=== PATIENT | male | born 1960 | race Hispanic/Latino ===

== ENCOUNTER 2021-07-13 14:40 | Emergency (ER) | payer MEDICARE ==
--- NOTE | 2021-07-13 14:59 | Emergency Department Report ---
ED CPR HPI - General Stated Complaint: CARDIAC ARREST Time Seen by Provider: 07/13/21 14:54 Source: EMS - History of Present Illness Initial Comments: 60-year-old male, history of CVA, CAD with stents, presents to ED in cardiac ar rest. Per EMS, family arrived home approximately 1 hour ago and found patient unresponsive. Patient was last seen normal 1 hour prior to that. EMS arrived and found patient in asystole. Servando tube was placed. Accu-Chek in the 200s. EMS is unable to obtain IV access or IO access. Patient has been receiving chest compressions and O2 via Servando tube for the last 35 minutes. Patient presents to ED and continued arrest. MD Complaint: found unresponsive -: hour(s) (1) Place: home Shock Advised: No Initial Findings in the Field: unresponsive, no respirations, no pulse, other rhythm (Asystole) ROSC in the Field: No Treatments Prior to Arrival: other airway device (Servando tube), chest compressions - Related Data Previous Rx's Medication Instructions Recorded Last Taken Type Aspirin 325 mg PO QDAY #30 tablet 08/14/19 Unknown Rx AtorvaSTATin [Lipitor] 40 mg PO QHS #30 tablet 08/14/19 Unknown Rx Clopidogrel [Plavix] 75 mg PO QDAY #30 tablet 08/14/19 Unknown Rx Metoprolol [Lopressor TAB] 50 mg PO BID #60 tablet 08/14/19 Unknown Rx Nitroglycerin [Nitrostat] 0.4 mg SL .Q5MIN PRN #30 tablet 08/14/19 Unknown Rx amLODIPine 5 mg PO QDAY #30 tablet 08/14/19 Unknown Rx lisinopriL [Zestril TAB] 5 mg PO QDAY #30 tablet 08/14/19 Unknown Rx Allergies Allergy/AdvReac Type Severity Reaction Status Date / Time Sulfa (Sulfonamide Allergy Unknown Verified 10/29/13 23:53 Antibiotics) coconut Allergy Severe Swelling Uncoded 08/13/19 10:58 ED Review of Systems ROS: Stated complaint: CARDIAC ARREST Other details as noted in HPI Comment: Unobtainable due to pts medical conditions ED Past Medical Hx - Past Medical History Hx Hypertension: Yes Hx CVA: Yes (Left side wkness) Hx Heart Attack/AMI: No ( states No CT) Hx Congestive Heart Failure: No Hx Diabetes: No Hx Asthma: No Hx COPD: No 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 - Surgical History Hx Cholecystectomy: Yes - Social History Smoking Status: Never Smoker - Medications Home Medications: Home Medications Medication Instructions Recorded Confirmed Last Taken Type Aspirin 325 mg PO QDAY #30 tablet 08/14/19 Unknown Rx AtorvaSTATin [Lipitor] 40 mg PO QHS #30 tablet 08/14/19 Unknown Rx Clopidogrel [Plavix] 75 mg PO QDAY #30 tablet 08/14/19 Unknown Rx Metoprolol [Lopressor TAB] 50 mg PO BID #60 tablet 08/14/19 Unknown Rx Nitroglycerin [Nitrostat] 0.4 mg SL .Q5MIN PRN #30 tablet 08/14/19 Unknown Rx amLODIPine 5 mg PO QDAY #30 tablet 08/14/19 Unknown Rx lisinopriL [Zestril TAB] 5 mg PO QDAY #30 tablet 08/14/19 Unknown Rx ED Physical Exam - Head Head exam: Present: atraumatic, normocephalic - Eye Pupils: Present: other (Fixed bilaterally) - ENT ENT exam: Present: other (Servando tube in place) - Neck Neck exam: Present: normal inspection - Respiratory Respiratory exam: Present: other (No spontaneous breaths) - Cardiovascular Cardiovascular Exam: Present: other (No palpable pulse) - GI/Abdominal GI/Abdominal exam: Present: soft. Absent: distended - Extremities Exam Extremities exam: Present: normal inspection - Neurological Exam Neurological exam: Present: other (GCS 3) - Skin Skin exam: Present: warm, dry, intact ED Medical Decision Making - Medical Decision Making Upon arrival, patient had no IV access. IO placed by me. ACLS initiated. Patient already down x35 minutes with EMS. Please see nurses note for code details. Unfortunately unable to obtain ROSC. Time of called at 1450. - Differential Diagnosis ACS, PE, arrhythmia Critical care attestation.: If time is entered above; I have spent that time in minutes in the direct care of this critically ill patient, excluding procedure time. ED Disposition Clinical Impression: Cardiac arrest Disposition: 20 Is pt being admited?: No Condition: Stable Referrals: KARLA WARNER MD [Primary Care Provider] - 3-5 Days Time of Disposition: 15:00
== END 2021-07-13 17:30 ==
LOC: ED 14:40
DX: I46.9 Cardiac arrest, cause unspecified (principal); I10 Essential (primary) hypertension; Z88.2 Allergy status to sulfonamides; Z91.018 Allergy to other foods
CPT/HCPCS: 92950; 99285